=== PATIENT | female | born 1975 | race African-American/Black ===

== ENCOUNTER 2018-03-02 06:52 | Emergency (ER) | payer OTHER ==
[2018-03-02] MEDS ORDERED: Lidocaine 1% PF 5 ML VIAL ONE ×2 (08:20)
--- NOTE | 2018-03-02 10:24 | CON ---
DATE OF CONSULTATION: 03/02/2018 CONSULTING PHYSICIAN: Dr. Warner, Emergency Room. CHIEF COMPLAINT: "Bartholin's gland cyst." HISTORY OF PRESENT ILLNESS: This is a 43-year-old para 4, who presented to the emergency department for a "recurrent Bartholin gland cyst." She has been seen multiple times in the emergency room since November to drain this at the [facility]. She has been seen by Dr. Vale and was referred to Dr. Liesth Brand, for surgical removal, but has not scheduled surgery yet. She denies any trauma to the area and denies any fever, chills, problems with urination, or other concerns. REVIEW OF SYSTEMS: Negative for head, eyes, ears, nose, throat, cardiovascular , respiratory, GI, , neuro, psych, musculoskeletal, skin, or constitutional symptoms other than mentioned above. PAST MEDICAL HISTORY: Hypertension. PAST SURGICAL HISTORY: Laparoscopic hysterectomy. ALLERGIES: 1. LISINOPRIL. 2. TRAMADOL. MEDICATIONS: Amitriptyline 10 mg daily, amlodipine 5 mg daily, hydrochlorothiazide 12.5 mg daily. SOCIAL HISTORY: Positive for tobacco use of approximately 3 cigarettes per day. Social alcohol use and negative drug use. PHYSICAL EXAMINATION: VITAL SIGNS: Blood pressure 154/94, pulse 74, respiratory rate 15, temperature 98.4. GENERAL: Awake, alert, in no acute distress. CHEST: Nonlabored breathing. PELVIC EXAM: Notable for approximately 5 cm cyst in the anterior portion of her right labia minora and the location of the [place]'s gland. Bartholins glands appear normal bilaterally. PROCEDURE: Risks, benefits, and alternatives were explained. Verbal consent was given for drainage and biopsy of the cyst wall. The area was cleansed with Betadine and an 11-blade scalpel was used to incise the cyst and open approximately 1 cm. Copious blood-tinged fluid drained out, but did not appear purulent. Cultures were taken and a small portion of the cyst wall was excised and sent for pathology. Pressure was applied and hemostasis was noted. The patient tolerated the procedure well. ASSESSMENT AND PLAN: A 43-year-old para 4 with a right-sided [place]'s gland cyst , status post drainage with wall biopsy. The patient was advised to follow up with Dr. Brand within the next week to evaluate further and set up for surgery if needed. We will follow up the results of the biopsy as well as the culture and we will contact the patient with the results. She may be discharged home at this time. All questions were answered. Thank you for this consult and let us know if we can be of any further assistance. KRYSTYNA
== END 2018-03-02 09:25 | disposition home or self-care (01) ==
LOC: ERS 06:52
DX: N36.8 Other specified disorders of urethra (principal); I10 Essential (primary) hypertension; G43.909 Migraine, unspecified, not intractable, without status migrainosus; F17.210 Nicotine dependence, cigarettes, uncomplicated; Z79.899 Other long term (current) drug therapy
CPT/HCPCS: 87070; 87205; 99283; J2001

== ENCOUNTER 2019-07-27 07:38 | Emergency (ER) | payer OTHER, SELFPAY | END 2019-07-27 09:13 | disposition home or self-care (01) | LOC: ERS 07:38 | DX: J30.9 Allergic rhinitis, unspecified (principal); I10 Essential (primary) hypertension; G43.909 Migraine, unspecified, not intractable, without status migrainosus; F17.210 Nicotine dependence, cigarettes, uncomplicated; Z79.899 Other long term (current) drug therapy | CPT/HCPCS: 99283 ==

== ENCOUNTER 2020-12-12 07:41 | Emergency (ER) | payer OTHER ==
[2020-12-12] MEDS ORDERED: Dexamethasone 4 mg/ml Vial ONE (09:06)
== END 2020-12-12 09:18 | disposition home or self-care (01) ==
LOC: ERS 07:41
DX: J01.90 Acute sinusitis, unspecified (principal); I10 Essential (primary) hypertension; F17.210 Nicotine dependence, cigarettes, uncomplicated; G43.909 Migraine, unspecified, not intractable, without status migrainosus
CPT/HCPCS: 99283; J1100